=== PATIENT | female | born 1955 | race Caucasian/White ===

== ENCOUNTER 2020-04-06 13:18 | Outpatient (CLI) | payer MEDICARE, MEDICAID, SELFPAY ==
[2020-04-06 14:22] LABS: Alanine Aminotransferase 14 U/L (0-33); Albumin Level 4.2 g/dL (3.5-5.2); Alkaline Phosphatase 73 IU/L (35-105); Aspartate Amino Transferase 15 U/L (0-32); Blood Urea Nitrogen 10 mg/dL (8-23); Calcium 9.6 mg/dL (8.5-10.5); Carbon Dioxide 27 mmol/L (22-29); Chloride 100 mmol/L (98-107); Globulin 2.9 g/dL (1.3-4.6); Glomerular Filtration Rate 71.8 mL/min (90-130); Glucose 97 mg/dL (65-115); Osmolality Calculated 282 mOsm/kg (285-295); Sodium 138 mmol/L (136-145); Total Bilirubin 0.3 mg/dL (0.15-1.2); Total Protein 7.1 g/dL (6.6-8.7)
[2020-04-06 15:01] LABS: CA 125 10.9 U/mL (0-35)
[2020-04-06 16:47] LABS: Basophils % 0.5 %; Eosinophils # 0.1 10^3/uL (0.0-0.8); Eosinophils % 1.7 %; Hematocrit 42.4 % (37.0-47.0); Hemoglobin 13.9 g/dL (11.5-15.3); Lymphocytes # 1.9 10^3/uL (0.8-4.8); Lymphocytes % 32.2 %; Mean Corpuscular HGB Conc 32.8 g/dL (30.0-36.0); Mean Corpuscular Hemoglobin 31.9 pg (28.0-34.0); Mean Corpuscular Volume 97.2 fL (81-99); Mean Platelet Volume 9.7 fL (7.4-10.4); Monocytes # 0.5 10^3/uL (0.2-0.9); Monocytes % 8.1 %; Neutrophils # 3.3 10^3/uL (1.8-7.7); Neutrophils % 57.3 %; Nucleated Red Blood Cells % 0 %; Platelet Count 305 10^3/cmm (130-400); Red Blood Count 4.36 10^6/uL (4.1-5.3); Red Cell Distribution Width 13.5 % (12.1-15.1); White Blood Count 5.8 10^3/uL (4.0-10.0)
--- NOTE | 2020-04-10 13:14 | ONC FU_ITS ---
Dr. Bagley Patient Follow-Up Note Patient: Ani Flores Unit #: [id number]: [id number] Dicatated By: Joaquin Bagley M.D.Date of Visit:Apr 06, 2020 Onc Med Follow-up/Prog Note Chief Complaint: Ovarian cancer. 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 She had presented to the emergency room in December 2014 with fairly acute onset of abdominal pain. CT at her/pelvis at that time showed a complex cystic and solid soft tissue mass in the pelvis measuring 11.9 x 9.1 x 11.3 cm. It was felt to be most likely of left ovarian origin. There was a moderate amount of ascites distributed throughout the peritoneal cavity. There were just a few scattered subcentimeter para-aortic and paravenacaval lymph nodes seen. There was no definite intraperitoneal or omental nodularity noted. She was transferred to [facility]. On 01/13/15 she underwent exploratory laparotomy with total abdominal hysterectomy, bilateral salpingo-oophorectomy, omentectomy, pelvic and periaortic lymph node dissection, and multiple peritoneal biopsies. The operative note describes a large thin-walled ovarian cyst which was adherent to the posterior wall of the uterus and the rectosigmoid colon at the peritoneal reflection and the cul-de-sac peritoneum. The report indicates there was a leak with removal because of the adherence at the colon and the pelvis. The right tube and ovary were noted to be normal and the endometrial cavity also was normal. There were adhesions related to the previous . The other peritoneal surfaces in the pelvis, bilateral pericolic gutters, mesocolon, bladder peritoneum, and cul-de-sac peritoneum were essentially negative. The diaphragms also were negative and the omentum was clinically negative. The pathology report described the left ovary measuring 13 x 9 x 8 cm. The cut services revealed a partially solid and partially cystic coarsely bosselated friable mass with the solid component measuring 9 x 6 x 4 cm. Histologically it was felt to be consistent with high-grade serous adenocarcinoma. The capsule was noted to be intact, and it was reported as a pT1a tumor. There was no involvement in the right ovary, omentum, or in multiple peritoneal biopsies, and there was no involvement in a total of 34 lymph nodes. The peritoneal fluid cytology was negative. Due to the high grade histology and suspected intraoperative cyst rupture, she was given adjuvant chemotherapy with carboplatin/Taxol. cycle 1 beginning 02/19/2015. As of 04/23/2015 she had completed her 4th cycle of chemotherapy. We opted to stop treatment at that point due to increasing neuropathy. She had tolerated the chemotherapy well otherwise, though her course of treatment was also complicated by a traumatic fracture of the right forearm. She was then been followed on observation/expectant management. She has otherwise been in excellent health. She has no other medical illnesses. Prior surgeries were limited to section and appendectomy. She is a nonsmoker. INTERIM HISTORY: August 2019 she was admitted to the hospital with right hemispheric stroke symptoms. Her MRI showed a tiny focus of acute ischemia involving the right thalamus measuring 4 mm. Other findings included mild small vessel changes and moderate parenchymal volume loss as well as moderate symmetric atrophy involving the temporal lobes and hippocampal formations. There was no evidence of metastatic disease. She had almost complete resolution of symptoms. She is seen for a scheduled visit. She has been feeling pretty good generally. She says she does get tired a little more easily and she does have somewhat restricted activity. She still has a little numbness in the left leg, mainly in the ankle and foot. She has no other residual neurologic symptoms. Her ECOG score is 1. She has good appetite. She has not had fever. She occasionally has hot flashes at night. She has some sinus drainage and cough. She does not complain of shortness of breath or chest pain. She has no GI or complaints. She has joint pain, mainly in the hands and knees. She has just occasional headache. She does not complain of dizziness. She sometimes has difficulty sleeping. Medications: Lisinopril 1 Tablet (of 20 mg) Oral daily, Plavix 1 Tablet (of 75 mg) Oral daily Allergies: CT contrast Review of Systems: Constitutional - She is generally feeling good. Her energy is good but she does get tried easily. She works full-time. She does have some slight activity restrictions. Her appetite is good and weight is down 4 pounds from last visit. No fever, night sweats, or hot flashes. ECOG score is 1, ENMT - She is having persistent sinus congestion/drainage. No mouth sores. No sore throat or difficulty swallowing, Hematologic/Lymphatic - She bruises easily, Respiratory - No shortness of breath. She has a cough. No pleuritic pain or hemoptysis, Cardiovascular - No angina pain. No palpitations, Gastrointestinal - No nausea or vomiting. No heartburn or acid reflux. No diarrhea or constipation. No blood in the stool or black stools, Genitourinary (F) - No dysuria or hematuria. No urinary frequency. No urgency or incontinence, Musculoskeletal - She has arthritis pain in her hands, Integumentary - No skin complications, Neurologic - No headache or dizziness. She has some numbness in her left lower leg. She reports that she had a small stroke back in August, Psychiatric - No anxiety or depression. She sometimes has difficulty sleeping. Vital Signs: Performed on Apr 06, 2020 14:43 Height - 66.00 in Weight - 173.0 lbs (LOW) BSA - 1.88 sq.m BMI - 27.92 Temperature - 97.4 F (LOW) Pulse - 89 /min Respiration - 24 /min BP - 161/95 mm(hg) (HIGH) O2 Sat - 98 % Pain - 0 Physical Examination: Constitutional - She looks pretty good generally, Eyes - Sclerae nonicteric. Conjunctivae clear, ENMT - No lesions noted in the oral cavity, Hematologic/Lymphatic - No cervical, clavicular, or axillary adenopathy, Respiratory - Lungs are clear with good air movement bilaterally, Cardiovascular - Heart is regular with no murmur, gallop or rub noted, Abdomen - Soft. Liver and spleen are not enlarged. There is no abdominal mass or ascites noted and there is no inguinal adenopathy, Extremities - No edema, Neurologic - She does not appear to have any focal neurologic deficit. Lab/Imaging: Test performed on Apr 06, 2020 13:29 Sodium 138 mmol/L Potassium 4.0 mmol/L Chloride 100 mmol/L CO2 27 mmol/L Anion Gap 15.0 BUN 10 mg/dL Creatinine 0.8 mg/dL Cr Clearance (Est) 85.69 mL/min eGFR 71.8 mL/min Glucose 97 mg/dL Calcium 9.6 mg/dL Protein, Total 7.1 g/dL Albumin 4.2 g/dL Globulin 2.9 g/dL Bilirubin, Total 0.3 mg/dL ALT (SGPT) 14 U/L AST (SGOT) 15 U/L Alkaline Phosphatase 73 IU/L WBC 5.8 10 3/uL RBC 4.36 10 6/uL HGB 13.9 g/dL HCT 42.4 % MCV 97.2 fL MCH 31.9 pg MCHC 32.8 g/dL RDW 13.5 % Platelet Count 305 10 3/cmm MPV 9.7 fL Neutrophils 3.3 10 3/uL Lymphocytes 1.9 10 3/uL Monocytes 0.5 10 3/uL Eosinophils 0.1 10 3/uL Basophils 0.0 10 3/uL Neutrophil % 57.3 % Lymphocyte % 32.2 % Monocyte % 8.1 % Eosinophil % 1.7 % Basophils % 0.5 % NRBC % 0 % CA-125 10.9 U/mL Impression: 1. 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 She underwent total abdominal hysterectomy, bilateral salpingo-oophorectomy, omentectomy, pelvic and periaortic lymph node dissections, and multiple peritoneal biopsies on 01/13/2015. 2. She was given adjuvant chemotherapy with carboplatin/Taxol. As of 04/23/2015 she had completed 4 cycles of chemotherapy. She experienced some treatment related fatigue. Following the fourth cycle, she also developed significant neuropathy in both feet, and I did opt to stop her chemotherapy. 3. Her treatment also was complicated by traumatic fracture of the right forearm. She has been followed on observation/expectant management following completion of the chemotherapy. She experienced mild right hemispheric stroke in August 2019. She has had a good recovery. She has otherwise been doing well clinically. Thus far there has been no evidence of recurrence of the ovarian cancer. Plan: She remains on observation/expectant management for the ovarian cancer. As she is now 5 years out from completion of her chemotherapy, she will just continue her regular follow-up with Jayna White. She should have a CA-125 level included with her other yearly labs. I will plan to see her again only as needed. Signed By: Joaquin Bagley M.D. <<Signature on File>>
== END 2020-04-06 13:19 | disposition home or self-care (01) ==
LOC: ONCMED 13:23
PROVIDERS: PCP Nurse Practitioner Family; Visit Provider Internal Medicine Medical Oncology
DX: Z08 Encounter for follow-up examination after completed treatment for malignant neoplasm (principal); Z85.43 Personal history of malignant neoplasm of ovary; Z90.722 Acquired absence of ovaries, bilateral; Z90.710 Acquired absence of both cervix and uterus; Z92.21 Personal history of antineoplastic chemotherapy
CPT/HCPCS: 80053; 85025; 86304; G0463

== ENCOUNTER → 2021-02-16 08:53 | Outpatient (BNVA) | payer MEDICARE, MEDICAID, SELFPAY | PROVIDERS: PCP Nurse Practitioner Family; Referring Provider Family Medicine; Visit Provider Specialist | DX: I10 Essential (primary) hypertension (principal); Z86.73 Personal history of transient ischemic attack (TIA), and cerebral infarction without residual deficits; Z85.43 Personal history of malignant neoplasm of ovary | CPT/HCPCS: 99204 ==

== ENCOUNTER 2022-05-10 09:04 | Outpatient (CLI) | payer MEDICARE, MEDICAID, SELFPAY ==
--- NOTE | 2022-05-10 09:12 | MM_ITS ---
WS: [id number] BILATERAL SCREENING DIGITAL BREAST TOMOSYNTHESIS MAMMOGRAM WITH CAD HISTORY: SCREENING COMPARISON: 04/02/2019 Bilateral CC and MLO views with tomosynthesis and synthetic mammography submitted. Computer aided det ection analyzed. Breast composition: The breasts are heterogeneously dense, which may obscure small masses. No suspici ous masses, microcalcifications or architectural distortion. Benign calcifications in the medial LEFT breast. MM/[place] [id number] IMPRESSION: BI-RADS: 2-Benign FOLLOW UP: 1 Year Follow-up
== END 2022-05-10 09:05 | disposition home or self-care (01) ==
PROVIDERS: PCP Nurse Practitioner Family; Visit Provider Nurse Practitioner Family
DX: Z12.31 Encounter for screening mammogram for malignant neoplasm of breast (principal)
CPT/HCPCS: 77063; 77067

== ENCOUNTER 2024-09-10 09:20 | Outpatient (CLI) | payer MEDICARE, MEDICAID, SELFPAY ==
--- NOTE | 2024-09-10 09:20 | MM_ITS ---
WS: [id number] VIEWS: MLO and CC views both breasts. 3D digital tomosynthesis is also included in this exam. Comparison made with prior exam of 04/02/2019, 05/10/2022.. Findings: The breasts are heterogeneously dense, which may obscure small masses. No sign of suspicious mass, tumor calcification or architectural distortion. MM/MM scr BI tomosynthesis [id number] Impression: BI-RADS: 2 - Benign FOLLOW-UP: 1 Year Follow-up This mammogram was also analyzed by the Computer Aided Detection System R2 Imag e Filter Tip Catcher.
== END 2024-09-10 09:21 | disposition home or self-care (01) ==
LOC: MOBLMAM 09:31
PROVIDERS: PCP Nurse Practitioner Family; Visit Provider Nurse Practitioner Family
DX: Z12.31 Encounter for screening mammogram for malignant neoplasm of breast (principal); R92.333 Mammographic heterogeneous density, bilateral breasts
CPT/HCPCS: 77063; 77067